=== PATIENT | male | born 1945 | race Two or more races ===

== ENCOUNTER → 2016-11-17 | Outpatient (CLI) | payer OTHER ==
[~2016-11-17] MED LIST: CELE200C PO; GEMF600T3 PO; LISI1TAB7 PO; METF500T4 PO; METH-37 PO; OMEG1CAP6 PO; POTASSIUM CHLO10 MEQ PO
--- NOTE | 2016-11-17 13:40 | RAD ---
MRI Lumbar Spine without contrast History: Low back pain, right leg radiculopathy for 2 years after a fall Technique: Multiplanar, multi sequential noncontrast MR imaging was performed of the lumbar spine. Contrast: None Comparison: None Findings: Lumbar vertebral body stature is overall maintained, Schmorl's nodes at L4-L5. There is more advanced degenerative disc disease at L4-5 and L5-S1, to lesser degree at more superior levels. There is minimal posterior subluxation L3 relative L4 and L4 relative to L5 and negligible posterior subluxation L2 relative to L3. Conus terminates at L1-2. There are posterior annular tears L3-4 and L4-5. There is a 1.5 cm T2 hyperintense lesion of the visualized right kidney and also focus of the left kidney 1.2 cm, statistically likely cysts. 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 L1-L2: There is negligible posterior bulge. There is mild facet hypertrophic change and buckling of the ligamentum flavum flavum. Spinal canal and neural foramina are adequate. L2-L3: There is prominence of posterior epidural fat. There is moderate to severe facet degenerative change and mild to moderate buckling of the ligamentum flavum. There is minimal posterior bulge. There is overall mild spinal stenosis. Neural foramina are adequate. L3-L4: There is moderate to severe facet degenerative change. There is negligible disc osteophyte complex and bulge. There is mild narrowing of the far lateral recesses bilaterally. Neural foramina are adequate. L4-L5: There is moderate bilateral facet hypertrophic change and mild buckling of the ligamentum flavum. There is moderate neural foramina compromise bilaterally. There is moderate to severe narrowing of the far right lateral recess, to a somewhat lesser degree on the left. L5-S1: There is disc osteophyte complex and superimposed broad posterior protrusion, contacting the ventral surfaces descending S1 nerve roots bilaterally. There is moderate facet hypertrophic change and mild buckling of the ligamentum flavum. There is moderate narrowing of the far lateral recesses bilaterally. There is moderate narrowing of the left neural foramen, contact of the undersurface of exiting left L5 nerve root by disc osteophyte complex/protrusion. There is mild narrowing of the right neural foramen. Impression: 1. There is more advanced degenerative disc disease L4-5 and L5-S1, to lesser degree at more superior levels. The is multilevel spondylosis. 2. There is multilevel lateral recess stenosis as stated greatest bilaterally at L4-5 and L5-S1. 3. There is multilevel moderate lumbar neural foramina compromise greatest bilaterally at L4-5 and on the left at L5-S1. 4. There are likely cysts of the bilateral kidneys. Electronically signed by: Glenn Pratt MD (11/17/2016 1:36 PM) [id number]
== END | disposition home or self-care (01) ==
LOC: MRI 14:51
PROVIDERS: ATTEND Family Medicine
DX: M51.37 Other intervertebral disc degeneration, lumbosacral region (principal); M47.897 Other spondylosis, lumbosacral region; M48.07 Spinal stenosis, lumbosacral region; M54.16 Radiculopathy, lumbar region
CPT/HCPCS: 72148

== ENCOUNTER → 2016-12-08 | Outpatient (CLI) | payer OTHER ==
[~2016-12-08] MED LIST changes: +IOHEXOL 180 MG/ML 10 ML VIAL. ONE; +methylPREDNISolone ACETATE 40 MG/ML VIAL. ONE; +methylPREDNISolone ACETATE 80 MG/ML VIAL. ONE
--- NOTE | 2016-12-08 15:51 | PAIN ---
DATE OF SERVICE: 12/08/2016 CHIEF COMPLAINT: Low back and right lower extremity pain. HISTORY OF PRESENT ILLNESS: This is a 71-year-old male who presents with history of pain for about 6 months to a year in the low back, right lower extremity. He fell down the stairs about 2 years ago and had some pain in low back and hip at that time, but it seemed to clear up for the most part after the injury a few months later, but the pain in his leg has never quite resolved. The patient reports it is radiating and mostly in the posterior gluteus, posterior lateral thigh, lateral anterior thigh, anterior medial thigh, medial calf to the level of the foot with some significant pain in the anterior ankle on the right side. The patient reports it feels numb and tingly at times. The patient was down the leg to the foot and the toes on the right side only. He has some numbness sensation in the foot as well. The patient did have some injections in early November this month at which helped some of the leg pain, but not the pain in the foot or the hip. The patient reports it is worse with standing, walking, changing positions, describes as constant, sharp, stabbing, tingling, numbness, radiation and aching pain. The patient reports it does not awaken him from sleep at night, does not affect his bowel or bladder control, but does affect his ability to walk. He uses a cane occasionally, but does not have one with him today. The patient reports it is better with lying down or sitting, worse with standing and walking, even more than about 5 minutes will be the point where he needs to sit down again because of the right leg pain. The patient reports no symptoms on the left leg, easy fatigability of the right leg as well, but without any gross motor loss. The patient reports his disability rating from 0 to 10, 10 being the worst, is 8 with family and home responsibilities and recreation, 6 with social activity and 5 with self-care. The patient did have MRI scan of the lumbar spine dated 11/17/2016 showing advanced degenerative disk disease L4-L5 and L5-S1 with multiple lateral recess stenosis he is stating greatest bilaterally at L4-L5 and L5-S1 with multilevel moderate lumbar neural foraminal compromise, greatest bilaterally L4-L5 and on the left at L5-S1. The L4-L5 showing severe narrowing on the far right lateral recess from facet hypertrophic change and mild buckling of ligamentum flavum with moderate neural foraminal compromise bilaterally. The patient has tried exercising on his own; otherwise, he just had some epidural injections at in October and November of this year. The patient tried methocarbamol as well as gabapentin, steroid pack, which helped to a moderate extent again was about a month ago, but the pain came back after about a week. PAST MEDICAL HISTORY: Significant for diabetes type 2, hypertension, arthritis. 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 CURRENT MEDICATIONS: Include Celebrex, methocarbamol, metformin, potassium, fish oil, Unipril, gemfibrozil and potassium. ALLERGIES: THE PATIENT IS ALLERGIC TO ROCEPHIN, WHICH CAUSES HIVES. SOCIAL HISTORY: The patient drinks about 2 beers a week on average, does not smoke. He is , lives with his spouse and one child living at home. He reports he is currently retired and lives locally in [place], [place]. FAMILY HISTORY: Significant for lung cancer and heart disease as well as breast cancer in a sister. REVIEW OF SYSTEMS: The patient's review of systems is positive for those items mentioned in history of present illness. All systems reviewed and otherwise negative. It is complete, full and well documented on the patient's chart. PHYSICAL EXAMINATION: VITAL SIGNS: The patient's blood pressure is 128/67, pulse 72, respirations 16, temperature 97.7 degrees Fahrenheit, height 6 feet 0 inches and weight is 231 pounds. GENERAL: The patient is awake, alert, oriented, appropriate, very pleasant demeanor. HEENT: Head shows normocephalic, atraumatic. The patient wears eyeglasses. Extraocular movements are intact and symmetrical. Oral cavity: Mucous membranes moist and pink. Dentition is intact. NECK: Shows anterior throat supple without palpable lymphadenopathy noted. Swallow reflex is symmetrical. CHEST: Shows normal on inspection. Breath sounds clear to auscultation bilaterally. HEART: Shows S1 and S2 clear. No murmurs auscultated. ABDOMEN: Soft, nontender, nondistended. No palpable organomegaly. No rebound or guarding demonstrated. BACK: Shows spine grossly in midline. Normal appearing thoracic kyphosis, lumbar lordotic curvature without previous bruises, lesions, rashes or scars noted. The patient's lumbar paraspinous musculature shows symmetrical on inspection with palpation, shows some moderate tenderness with palpation bilaterally in the lower lumbar distribution, slightly more on the right than the left, but not asymmetric without trigger points, without radiation of pain, no tenderness over the sacrum or sacroiliac regions. No tenderness to palpation over the spinous processes. The patient shows good rotation and motion of the lumbar spine, both laterally greater than 10 degrees right and left as well as extension greater than 10 degrees, forward flexion 45 degrees without difficulty or pain reported. Lower extremities show deep tendon reflexes at 1+/4 in the patellar and tendo calcaneus tendons are equal. Motor exam is 5/5 with dorsiflexion, extension, quadriceps and hamstring flexion is strong and equal bilaterally. Peripheral pulses are 1+ posterior tibial and dorsalis pedis pulses. No peripheral edema is noted. No clubbing, no cyanosis. Straight leg raising noted to be positive on the right about 40 degrees with decreased pain with knee flexion, but not completely relief. Left side is negative. Gaenslen's and Riley's maneuvers show negative for reproduction of hip pain or low back pain bilaterally. The patient has some mildly limited external rotation of the hips secondary most likely to previous hip replacements. The patient is able to stand, stand on his toes without significant difficulty or loss of balance and walks with a shuffling gait, does not appear to favor the right or left lower extremity significantly. Again, the patient is not using any assistive devices today, but reports he keeps a cane with him most times when he is out walking for the distances. IMPRESSION: 1. This is a 71-year-old male with a history of about 6 months to a year of increasing pain, low back, right lower extremity in a radicular fashion. 2. MRI scan of the lumbar spine as noted. 3. Type 2 diabetes. 4. Hypertension. 5. Arthritis. PLAN: Options were discussed with the patient and the patient's daughter, who acts as a liability claims representative for [place] for the patient as he speaks very little [place] throughout the interview and exam as well as the procedure today. We discussed options and he has had 2 epidural steroid injections already and would like to get a third one. The patient reports that he is simply following or wanted another opinion on his back and leg and foot pain, which is why he sought an additional pain clinic today. We discussed options as far as physical therapies, interventional techniques. He would like to have the third injection. We will proceed with an epidural steroid injection today using description as well as anatomical models to describe the procedure. Risks were discussed with the patient via his daughter as well and via [employer] teacher kinder[employer] for the procedure including, but not limited to bleeding, infection, possibility of epidural hematoma and subsequent neurologic compromise, dural puncture, headaches, spinal cord and/or nerve damage, side effects of steroid medication and poor results regarding pain control. The patient understands and wished to proceed. We will have the patient return on as needed basis at this time. Follow up as this will be the third injection in the last 2 months. The patient understands and agrees and follow up as necessary. DIAGNOSES: Lumbar radiculopathy with lumbar degenerative disk disease, lumbar spinal stenosis. PROCEDURE: Lumbar epidural steroid injection, translaminar approach at the L4-L5 level using C-arm fluoroscopic guidance under sterile prep and drape using local anesthetic. MEDICATION INJECTED: A total of 120 mg Depo-Medrol plus 10 mL preservative-free normal saline and 2 mL of Isovue for contrast. CONDITION AT DISCHARGE: Stable. The patient tolerated procedure well, had no complications. MEHRDAD LYLE MD DR: EUFEMIA/rizwan JOB#: [id number] / [id number] FELIX Davila MD
== END | disposition home or self-care (01) ==
LOC: PNCL 09:33
PROVIDERS: ATTEND Anesthesiology
DX: M51.16 Intervertebral disc disorders with radiculopathy, lumbar region (principal); M48.061 Spinal stenosis, lumbar region without neurogenic claudication; M19.91 Primary osteoarthritis, unspecified site; E11.9 Type 2 diabetes mellitus without complications; I10 Essential (primary) hypertension; Z88.1 Allergy status to other antibiotic agents
CPT/HCPCS: 62323; J1030; J1040